=== PATIENT | male | born 1955 | race Caucasian/White ===

== ENCOUNTER 2019-12-26 04:11 | Emergency (ER) | payer MEDICARE, OTHER ==
[~2019-12-26] VITALS: Ht 180.3 cm; Wt 89.8 kg
[2019-12-26] MEDS ORDERED: ASPIRIN 81 MG CHEW TAB PO STA (04:32)
[2019-12-26] MEDS ORDERED: PANTOPRAZOLE 40 MG 10ML VIAL IV STA (04:32)
--- NOTE | 2019-12-26 04:42 | Emergency Department Note ---
History of Present Illnes History of Present Illness Chief Complaint: Chest Pain History of Present Illness This is a 64 year old male . 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: Pt has no hx of VTE no leg pain or leg swelling Personnel Clerk Required: No Onset (how long ago): hour(s) (Pt had his dinner at 6 pm gradually symptoms started at 9pm since then they have been constant normally when he gets these symptoms they last about 6-7 hours and go away this time they did not) Location: epigastric and chest , hx of same no hx of PUD, no black or bloody stools Quality: burning and chest pressure, no hx of GB problems no hx of CAD Radiation: Reports non-radiation Severity: moderate (Pt states certain foods can make it worse, tried to take a hot shower to see if it would help. Did not take any H2, PPI, Antacids, took an NSAID and make himself vomit which was non bloody and not coffee ground) Onset quality: gradual (since 9 pm constant) Duration (how long): hour(s) (7-8 hours) Progression: unchanged Chronicity: recurrent (Pt had the same symptom last week no hx of EGD, Stress test or cardiac work up. Pt had roast beef and potatoes last night after which symptoms started) Context: Denies recent illness, Denies recent surgery, Denies recent immo bilization, Denies recent travel, Denies trauma/injury, Denies new medications, Denies hx of DVT/PE, Denies non-compliance w/ medications, Denies other Relieving factors: none Exacerbating factors: other (certain types of foods, not related to exercise, made himself vomit to try to feel better) Associated symptoms: Denies denies other symptoms, Denies confusion, Denies chest pain, Denies cough, Denies diaphoresis, Denies fever/chills, Denies headaches, Denies loss of appetite, Denies malaise, Denies nausea/vomiting, Denies rash, Denies seizure, Denies shortness of breath, Denies syncope, Denies weakness, Denies other Treatments prior to arrival: NSAID Risk factors: no hx of CAD, HTN or High Cholesterol no family hx of CAD, has not seen PCP (FARZANA MARCH MD) History of Present Illness 64 y/o M who presents with cramping epigastric pain. +N. Made himself vomit with mild releif. Onset a few hours after 6PM dinner. Similar sx in past for years, this time did not resolve. Has not seen MD for this. Radiates to bilateral shoulder blades. No hx of CAD/HTN/>Chol/or smoking. Has normal CMP (including LFTs), troponin, EKG, WBC, and CXR here. Little improvement with GI cocktail. Also given IV PPI and Morphine. Checked out to me by Dr. March pending CT scan, lipase, and 2nd set of cardiac enzymes. CT showed gallstone with no evidence of cholecystitis. Will order RUQ US and await lipase and 2nd set of cardiac enzymes. Arrival Mode: Car Radiation: Reports back Onset quality: gradual (since 9 pm constant) Chronicity: recurrent (Pt had the same symptom last week no hx of EGD, Stress test or cardiac work up. Pt had roast beef and potatoes last night after which symptoms started) Context: Denies recent illness, Denies recent surgery, Denies recent immobilization, Denies recent travel, Denies trauma/injury, Denies new medications, Denies hx of DVT/PE, Denies non-compliance w/ medications Associated symptoms: Denies confusion, Denies chest pain, Denies cough, Denies diaphoresis, Denies fever/chills, Denies headaches, Denies loss of appetite, Denies malaise, Denies nausea/vomiting, Denies rash, Denies seizure, Denies shortness of breath, Denies syncope, Denies weakness Treatments prior to arrival: NSAID (ALCON HARGROVE MD) Past Medical/Family History Physician Review I have reviewed the patient's past medical and family history. Any updates have been documented here. (FARZANA MARCH MD) Past Medical History Recent Fever: No Clinical Suspicion of Infectio: No New/Unexplained Change in Ment: No Past Medical History: None Past Surgical History: Hernia Repair (FARZANA MARCH MD) Social History Smoking Cessation: Never Smoker Alcohol Use: None Any Illegal Drug Use: No (FARZANA MARCH MD) Smoking Cessation: Never Smoker Alcohol Use: None Any Illegal Drug Use: No (ALCON HARGROVE MD) Review of Systems Review of Systems Constitutional: Denies fever Cardiovascular: Reports chest pain Respiratory: Denies cough, Denies pain on inspiration Gastrointestinal: Reports abdominal pain, Reports vomiting; Denies diarrhea (no black or bloody stools) Review of other systems: All other systems negative (FARZANA MARCH MD) Constitutional: Denies fever Cardiovascular: Denies chest pain Respiratory: Denies cough, Denies pain on inspiration Gastrointestinal: Reports abdominal pain; Denies diarrhea (no black or bloody stools), Denies vomiting Musculoskeletal: Reports no symptoms Neurological: Denies headache Psychological: Reports no symptoms Endocrine: Reports no symptoms Hematological/Lymphatic: Reports no symptoms (ALCON HARGROVE MD) Physical Exam Related Data Allergies: Coded Allergies: No Known Allergies (Unverified , 12/26/19) Triage Vital Signs Vital Signs Date Time Temp Pulse Resp B/P (MAP) Pulse Ox O2 Delivery O2 Flow Rate FiO2 12/26/19 04:20 98.0 73 18 160/88 99 Room Air Vital signs reviewed: Yes (FARZANA MARCH MD) Physical Exam CONSTITUTIONAL Constitutional: Present well-developed; Absent obese, Absent distressed, Absent ill appearing HENT HENT: Present normocephalic EYES Eyes: Reports conjunctivae normal NECK Neck: Present supple PULMONARY Pulmonary: Present breath sounds normal CARDIOVASCULAR Cardiovascular: Present regular rhythm GASTROINTESTINAL Abdominal: Present soft, Present tender GENITOURINARY SKIN Skin: Present warm MUSCULOSKELETAL Musculoskeletal: Absent edema NEUROLOGICAL Neurological: Present alert PSYCHOLOGICAL Psychological: Present mood/affect normal (FARZANA MARCH MD) Constitutional: Present well-developed; Absent obese, Absent distressed, Absent ill appearing HENT: Present normocephalic Eyes: Reports lids normal; Denies left eye discharge, Denies right eye discharge Neck: Present supple Pulmonary: Present breath sounds normal Cardiovascular: Present regular rhythm Abdominal: Present soft, Present tender (epigastric and RUQ, negative Paniagua's) Skin: Present warm Musculoskeletal: Absent edema Psychological: Present mood/affect normal, Present behavior normal, Present thought content normal, Present judgement normal (ALCON HARGROVE MD) Results Laboratory Laboratory CBC Normal CMP Normal Trop #1 Normal Lab results reviewed: Yes (FARZANA MARCH MD) Laboratory comments WBC 7.9, CMP NML, Troponin, NML, Lipase 39, negative repeat troponin (ALCON HARGROVE MD) Imaging Imaging results reviewed: Yes Impressions EXAMINATION: Chest PA and lateral views INDICATION: Pain. COMPARISON: None FINDINGS: TUBES and LINES: None. LUNGS: Lungs are well inflated. Mild patchy density in the lung bases, with mild elevation of the right lung base, suggestive of subsegmental atelectasis. There is no evidence of pneumonia or pulmonary edema. PLEURA: No pleural effusion or pneumothorax. HEART AND MEDIASTINUM: The cardiomediastinal silhouette is unremarkable. 4 mm linear density projected on the right apex. BONES AND SOFT TISSUES: There are degenerative changes in the thoracic spine. UPPER ABDOMEN: No free air under the diaphragm. IMPRESSION: No acute thoracic abnormality. Signed by: Dr. Sandra Pereira M.D. on 12/26/2019 5:55 AM Dictated By: BAUDILIO PEREIRA MD, MD 4 Transcribed By: SHAILESH on 12/26/19554 (FARZANA MARCH MD) Imaging Comments Procedure: [id number] HOPD/US ABDOMEN LIMITED-HOPD Exam Date: 12/26/19 Exam Time: 743 REPORT STATUS: Signed US ABDOMEN LIMITED-HOPD CLINICAL HISTORY: ^RUQ US: epigastric pain with gallstone on CT ^20191226 ^743 COMPARISON: None. TECHNIQUE: Real time grayscale and color Doppler images of the right upper quadrant abdominal organs were obtained using a curved transducer. FINDINGS: Pancreas: Not well-visualized. Liver: Normal in size and homogeneous in echogenicity. Focal liver lesions: None. Portal vein: Normal, hepatopetal flow. Bile ducts: Normal in caliber. Gallbladder: Gallstones; borderline gallbladder wall thickening, mems device scientist reported positive sonographic Paniagua's sign. No pericholecystic fluid Right kidney: Normal in size and cortical thickness. No hydronephrosis. Ascites: None in the upper abdomen. Proximal aorta and IVC: Not well visualized. MEASUREMENTS: Liver: 14.6 cm Common Duct: 2.7 mm Right Kidney: 11.9 cm Aorta: Not well visualized IMPRESSION: Cholelithiasis, borderline gallbladder wall thickening, and mems device scientist reported positive Paniagua's sign, concerning for acute cholecystitis in the correct clinical setting. Signed by: Honey Almaraz MD on 12/26/2019 8:39 AM Dictated By: HONEY ALMARAZ MD 8 Transcribed By: SHAILESH on 12/26/1939 Procedure: [id number] HOPD/CXR 2 VIEW - HOPD Exam Date: 12/26/19 Exam Time: 05 REPORT STATUS: Signed EXAMINATION: Chest PA and lateral views INDICATION: Pain. COMPARISON: None FINDINGS: TUBES and LINES: None. LUNGS: Lungs are well inflated. Mild patchy density in the lung bases, with mild elevation of the right lung base, suggestive of subsegmental atelectasis. There is no evidence of pneumonia or pulmonary edema. PLEURA: No pleural effusion or pneumothorax. HEART AND MEDIASTINUM: The cardiomediastinal silhouette is unremarkable. 4 mm linear density projected on the right apex. BONES AND SOFT TISSUES: There are degenerative changes in the thoracic spine. UPPER ABDOMEN: No free air under the diaphragm. IMPRESSION: No acute thoracic abnormality.Procedure: [id number] HOPD/CT ABD/PEL WITH CONTRAST-HOPD Exam Date: 12/26/19 Exam Time: 534 REPORT STATUS: Signed EXAM: CT Abdomen and Pelvis WITH contrast INDICATION: Pain. COMPARISON: None. TECHNIQUE: Abdomen and pelvis were scanned utilizing a multidetector helical scanner from the lung base to the pubic symphysis after administration of IV contrast. Coronal and sagittal reformations were obtained. Routine protocol was performed. Scan was performed when during portal venous phase. IV CONTRAST: 100 cc Isovue-370 ORAL CONTRAST: Water RADIATION DOSE: Total DLP: 808.39 mGy*cm Estimated effective dose: (DLP x 0.015 x size factor) mSv COMPLICATIONS: None FINDINGS: LINES and TUBES: None. LOWER THORAX: Unremarkable HEPATOBILIARY: No focal hepatic lesions. No biliary ductal dilation. GALLBLADDER: Single calcified calculus within the gallbladder neck. No wall thickening. SPLEEN: No splenomegaly. PANCREAS: No focal masses or ductal dilatation. ADRENALS: No adrenal nodules KIDNEYS/URETERS: Kidneys enhance symmetrically. No hydronephrosis. No cystic or solid mass lesions. Punctate density in the interpolar region of the left kidney on image 41 suggestive of a punctate nonobstructing calculus. GI TRACT: There is wall thickening of the greater curvature of the stomach as seen on axial images 19 and 20 series 2 which may be related to underdistention, however, gastritis is within the differential diagnosis in this patient with epigastric pain. No small bowel abnormal distention, wall thickening, or evidence of bowel obstruction. There are diverticula scattered throughout the descending and sigmoid colon without evidence of diverticulitis. Appendix is nonvisualized without inflammatory changes in the right lower quadrant; correlate for prior appendectomy. PELVIC ORGANS/BLADDER: Unremarkable. LYMPH NODES: No lymphadenopathy. VESSELS: There is mild atherosclerotic disease in the aorta and major arterial branches. PERITONEUM / RETROPERITONEUM: No free air or fluid. Increased density of the root of the mesentery territory fat associated with tiny lymph nodes, suggestive of mild dominic mesenteric. BONES: There are degenerative changes in the lumbar spine. Partial lumbarization of S1 with left-sided pseudoarthrosis. SOFT TISSUES: Bilateral small fat-containing inguinal hernias. IMPRESSION: 1. Wall thickening of the greater curvature of the stomach may be related to underdistention, however, gastritis is within the differential diagnosis. 2. Diverticulosis coli without diverticulitis. 3. Cholelithiasis without cholecystitis. No biliary dilatation. 4. Punctate nonobstructing left renal calculus. Signed by: Dr. Sandra Pereira M.D. on 12/26/2019 6:06 AM (ALCON HARGROVE MD) Procedures 12 Lead ECG Interpretation ECG Interpretation : ECG: ECG 1 Personnel Clerk: Interpreted by ED physician Date: Dec 26, 2019 Time: 04:38 Prior ECG tracings: reviewed Rhythm: sinus rhythm Rate: normal QRS axis: normal ST segments normal: Yes T waves normal: Yes Clinical Impression: normal ECG (FARZANA MARCH MD) ECG Interpretation : ECG: ECG 1 Prior ECG tracings: reviewed Rhythm: sinus rhythm Rate: normal BPM: 78 QRS axis: normal ST segments normal: Yes T waves normal: Yes Clinical Impression: normal ECG (ALCON HARGROVE MD) Clinical Decision Tools HEART Score HEART Score: HEART Score Response (Comments) Value History Moderately suspicious 1 Age 45 - 65 1 Risk factors no risk factors 0 Troponin 1-3x normal limit Total 2 HEART Score: HEART Score Response (Comments) Value History Slightly suspicious 0 EKG Normal 0 Age > or equal to 65 2 Troponin < or = to normal limit Total 2 Assessment & Plan Medical Decision Making MDM pancreatitis, gastritis, PUD, ACS, MT, GERD, Cholelithiasis (FARZANA MARCH MD) MDM Lipase negative, no pancreatitis on CT. EKG & Troponin neg X2. Patient with thickened stomach wall with gastritis picture. Has cholelithiasis. [place] GB wall thickening, but no fever, WBC, or >LFTs. Negative Paniagua's for me, but US tech got + Paniagua's. Patient declined admission. Spoke with Dr. Mejia who agreed to see patient tomorrow. Gave strict return precautions to patient. (ALCON HARGROVE MD) Reassessment Reassessment Pt still has pain GI Cocktail brought the pain down minimally (FARZANA MARCH MD) Reassessment 0900 Pain improved, requesting D/C. (ALCON HARGROVE MD) Assessment & Plan Final Impression: (1) Gastritis (2) Cholelithiasis (3) Abdominal pain (ALCON HARGROVE MD) Depart Disposition: HOME, SELF-CARE Last Vital Signs Date Time Temp Pulse Resp B/P (MAP) Pulse Ox O2 Delivery O2 Flow Rate FiO2 12/26/19 04:20 98.0 73 18 160/88 99 Room Air (FARZANA MARCH MD) Medications in the ED Pantoprazole Sodium 40 mg NOW STAT IV ; Start 12/26/19 at 04:32; Stop 12/26/19 at 04:33; Status UNV Aspirin 81 mg ONCE STAT PO ; Start 12/26/19 at 04:32; Stop 12/26/19 at 04:33; Status UNV Sodium Chloride 1,000 ml @ 0 mls/hr Q0M IV ; Start 12/26/19 at 04:45; Stop 01/25/20 at 04:44; Status UNV Belladonna Alkaloids/ Phenobarbital 15 ml ONCE ONCE PO ; Start 12/26/19 at 04:45; Stop 12/26/19 at 04:46; Status UNV (FARZANA MARCH MD) FARZANA MARCH MD Dec 26, 2019 04:42 ALCON HARGROVE MD Dec 26, 2019 07:00
[2019-12-26] MEDS ORDERED: MAGNESIUM/ALUMINUM/SIMETHICONE 30 ML UDC ONE (04:43)
[2019-12-26] MEDS ORDERED: LIDOCAINE VISC 2% SOLN 15 ML UDC ONE (04:43)
[2019-12-26] MEDS ORDERED: BELLADONNA ALK/PHENOBARBITAL 5 ML UDC ONE (04:43)
[2019-12-26] MEDS ORDERED: DONNATAL/LIDOCAINE/MAALOX 30 ML SUSP PO ONE (04:45)
[2019-12-26] MEDS ORDERED: SODIUM CHLORIDE 0.9% 1000ML 1,000 ML IV SCH (04:45)
[2019-12-26] MEDS ORDERED: MORPHINE SULFATE 2 MG/ML SYR 1ML IV STA (05:18)
[2019-12-26] MEDS ORDERED: SODIUM CHLORIDE 0.9% 50ML 50 ML ONE (05:19)
[2019-12-26] MEDS ORDERED: IOPAMIDOL 370 MG/ML 200 ML INFUS..BTL INJ ONE (05:20)
[2019-12-26] MEDS ORDERED: MORPHINE SULFATE INJ 4 MG/ML INJ 1ML ONE (05:43)
--- NOTE | 2019-12-26 05:58 | Diagnostic Imaging Report ---
EXAMINATION: Chest PA and lateral views INDICATION: Pain. COMPARISON: None FINDINGS: TUBES and LINES: None. LUNGS: Lungs are well inflated. Mild patchy density in the lung bases, with mild elevation of the right lung base, suggestive of subsegmental atelectasis. There is no evidence of pneumonia or pulmonary edema. PLEURA: No pleural effusion or pneumothorax. HEART AND MEDIASTINUM: The cardiomediastinal silhouette is unremarkable. 4 mm linear density projected on the right apex. BONES AND SOFT TISSUES: There are degenerative changes in the thoracic spine. UPPER ABDOMEN: No free air under the diaphragm. IMPRESSION: No acute thoracic abnormality. Signed by: Dr. Sandra Tesfaye M.D. on 12/26/2019 5:55 AM
--- NOTE | 2019-12-26 06:10 | Diagnostic Imaging Report ---
EXAM: CT Abdomen and Pelvis WITH contrast INDICATION: Pain. COMPARISON: None. TECHNIQUE: Abdomen and pelvis were scanned utilizing a multidetector helical scanner from the lung base to the pubic symphysis after administration of IV contrast. Coronal and sagittal reformations were obtained. Routine protocol was performed. Scan was performed when during portal venous phase. IV CONTRAST: 100 cc Isovue-370 ORAL CONTRAST: Water RADIATION DOSE: Total DLP: 808.39 mGy*cm Estimated effective dose: (DLP x 0.015 x size factor) mSv COMPLICATIONS: None FINDINGS: LINES and TUBES: None. LOWER THORAX: Unremarkable HEPATOBILIARY: No focal hepatic lesions. No biliary ductal dilation. GALLBLADDER: Single calcified calculus within the gallbladder neck. No wall thickening. SPLEEN: No splenomegaly. PANCREAS: No focal masses or ductal dilatation. ADRENALS: No adrenal nodules KIDNEYS/URETERS: Kidneys enhance symmetrically. No hydronephrosis. No cystic or solid mass lesions. Punctate density in the interpolar region of the left kidney on image 41 suggestive of a punctate nonobstructing calculus. GI TRACT: There is wall thickening of the greater curvature of the stomach as seen on axial images 19 and 20 series 2 which may be related to underdistention, however, gastritis is within the differential diagnosis in this patient with epigastric pain. No small bowel abnormal distention, wall thickening, or evidence of bowel obstruction. There are diverticula scattered throughout the descending and sigmoid colon without evidence of diverticulitis. Appendix is nonvisualized without inflammatory changes in the right lower quadrant; correlate for prior appendectomy. PELVIC ORGANS/BLADDER: Unremarkable. LYMPH NODES: No lymphadenopathy. VESSELS: There is mild atherosclerotic disease in the aorta and major arterial branches. PERITONEUM / RETROPERITONEUM: No free air or fluid. Increased density of the root of the mesentery territory fat associated with tiny lymph nodes, suggestive of mild dominic mesenteric. BONES: There are degenerative changes in the lumbar spine. Partial lumbarization of S1 with left-sided pseudoarthrosis. SOFT TISSUES: Bilateral small fat-containing inguinal hernias. IMPRESSION: 1. Wall thickening of the greater curvature of the stomach may be related to underdistention, however, gastritis is within the differential diagnosis. 2. Diverticulosis coli without diverticulitis. 3. Cholelithiasis without cholecystitis. No biliary dilatation. 4. Punctate nonobstructing left renal calculus. Signed by: Dr. Sandra Tesfaye M.D. on 12/26/2019 6:06 AM
[2019-12-26] MEDS ORDERED: FAMOTIDINE 20 MG/2 ML VIAL IV STA (06:32)
--- NOTE | 2019-12-26 08:42 | Diagnostic Imaging Report ---
US ABDOMEN LIMITED-HOPD CLINICAL HISTORY: ^RUQ US: epigastric pain with gallstone on CT ^20191226 ^[id number] COMPARISON: None. TECHNIQUE: Real time grayscale and color Doppler images of the right upper quadrant abdominal organs were obtained using a curved transducer. FINDINGS: Pancreas: Not well-visualized. Liver: Normal in size and homogeneous in echogenicity. Focal liver lesions: None. Portal vein: Normal, hepatopetal flow. Bile ducts: Normal in caliber. Gallbladder: Gallstones; borderline gallbladder wall thickening, superannuation clerk reported positive sonographic Paniagua's sign. No pericholecystic fluid Right kidney: Normal in size and cortical thickness. No hydronephrosis. Ascites: None in the upper abdomen. Proximal aorta and IVC: Not well visualized. MEASUREMENTS: Liver: 14.6 cm Common Duct: 2.7 mm Right Kidney: 11.9 cm Aorta: Not well visualized IMPRESSION: Cholelithiasis, borderline gallbladder wall thickening, and superannuation clerk reported positive Paniagua's sign, concerning for acute cholecystitis in the correct clinical setting. Signed by: Yordy Carnes MD on 12/26/2019 8:39 AM
[2019-12-26 09:47] VITALS: BP 126/68
== END 2019-12-26 09:46 | disposition home or self-care (01) ==
LOC: FSED 04:31
DX: K29.70 Gastritis, unspecified, without bleeding (principal); R10.13 Epigastric pain; R07.89 Other chest pain; K80.20 Calculus of gallbladder without cholecystitis without obstruction
CPT/HCPCS: 36415; 71046; 74177; 76705; 80053; 82553; 83690; 84484; 85025; 93005; 99284; C9113; J2270; J7030; Q9967